=== PATIENT | male | born 1970 | race Caucasian/White ===

== ENCOUNTER 2018-12-07 09:07 | Emergency (ER) | payer MEDICAID ==
[~2018-12-07] VITALS: Ht 167.6 cm; Wt 102.0 kg
[2018-12-07] MEDS ORDERED: ONDANSETRON HCL 4MG/2ML INJ IV STA (10:29)
[2018-12-07] MEDS ORDERED: MORPHINE SULFATE 4 MG/ML CPJ (NOT FOR IM USE) IV STA (10:29)
[2018-12-07] MEDS ORDERED: SODIUM CHLORIDE 0.9% 1,000 ML IV ONE (10:29)
[2018-12-07 10:49] LABS: HEMATOCRIT. 48.4 % (42.0-52.0); HEMOGLOBIN. 16.1 g/dL (14.0-18.0); MEAN CORPUSCULAR HEMOGLOBIN 27.7 pg (28.0-32.0); MEAN CORPUSCULAR VOLUME 82.9 fL (80.0-94.0); MEAN PLATELET VOLUME 8.6 fl (7.4-10.4); PLATELET 270 x1000/uL (130-400); RED BLOOD CELL COUNT 5.83 mill/uL (4.7-6.1); RED CELL DISTRIBUTION WIDTH 14.2 % (11.6-14.6)
[2018-12-07 10:52] LABS: CHLORIDE 101 mEq/L (98-107)
[2018-12-07 10:53] LABS: PROTHROMBIN TIME 10.4 sec (9.1-11.1)
[2018-12-07 10:56] LABS: ETHANOL BLOOD < 10 mg/dL
[2018-12-07 11:07] LABS: PLATELET ESTIMATE NORMAL
[2018-12-07 12:27] LABS: CLARITY URINE CLEAR (CLEAR); COLOR URINE YELLOW (YELLOW); KETONES URINE 2+ (NEGATIVE); LEUKOCYTE ESTERASE URINE NEGATIVE (NEGATIVE); NITRITE URINE NEGATIVE (NEGATIVE); OCCULT BLOOD URINE 1+ (NEGATIVE); PH URINE 6.5 (4.5-8.0); PROTEIN URINE 1+ (NEGATIVE); SPECIFIC GRAVITY URINE 1.018 (1.005-1.030); UROBILINOGEN URINE 0.2 E.U./dL (0.2-1.0)
[2018-12-07] MEDS ORDERED: IOHEXOL-300 100 ML BOTTLE ONE (12:43)
[2018-12-07 15:23] VITALS: BP 174/97
== END 2018-12-07 15:38 | disposition home or self-care (01) ==
LOC: ER 09:07
DX: R10.9 Unspecified abdominal pain (principal); R11.2 Nausea with vomiting, unspecified; I10 Essential (primary) hypertension
CPT/HCPCS: 36415; 74177; 80053; 81003; 83690; 85025; 85610; 87186; 96361; 96374; 96375; 99284; J2270; J2405; J7030; Q9967; Z7610